=== PATIENT | male | born 1960 | race Caucasian/White ===

== ENCOUNTER 2018-02-06 05:30 | Inpatient (IN) | payer OTHER ==
[2018-02-06] MEDS: D5W-0.45 NACL + KCL 20 MEQ 1,000 ML IV ×3 (06:50→22:21)
[2018-02-06] MEDS ORDERED: CEPASTAT LOZENGE MT (07:00)
[2018-02-06] MEDS ORDERED: DIPHENHYDRAMINE 50 MG INJ IV ×2 (07:00→09:00)
[2018-02-06] MEDS ORDERED: DIPHENHYDRAMINE 25 MG CAP PO (07:00)
[2018-02-06] MEDS: CEFAZOLIN 1 GM/50 ML (PMX) 50 ML IVPB ×3 (07:00→22:20)
[2018-02-06] MEDS ORDERED: NALOXONE (0.4 MG/ML) INJ IV (07:00)
[2018-02-06] MEDS ORDERED: ACETAMINOPHEN 325 MG TAB PO (07:00)
[2018-02-06] MEDS ORDERED: AL HYDROX/MG HYDROX/SIMETH 30 ML CUP PO (07:00)
[2018-02-06] MEDS ORDERED: BISACODYL 10 MG SUPP PR (07:00)
[2018-02-06] MEDS ORDERED: HYDROmorphONE 0.5 MG/0.5 ML SYG IV (07:00)
[2018-02-06] MEDS ORDERED: HYDROCODONE/APAP (10/325) TAB PO (07:00)
[2018-02-06] MEDS ORDERED: ROCURONIUM 50 MG INJ (07:01)
[2018-02-06] MEDS ORDERED: GLYCOPYRROLATE 0.4 MG INJ (07:01)
[2018-02-06] MEDS ORDERED: PROPOFOL 20 ML (07:01)
[2018-02-06] MEDS ORDERED: CEFAZOLIN 1 GM INJ (07:01)
[2018-02-06] MEDS ORDERED: NEOSTIGMINE 3 MG/3 ML SYRINGE (07:01)
[2018-02-06] MEDS ORDERED: MIDAZOLAM 1 MG/ML 2 ML INJ (07:02)
[2018-02-06] MEDS ORDERED: ONDANSETRON 4 MG INJ (07:02)
[2018-02-06] MEDS ORDERED: DEXAMETHASONE 4 MG/ML 1 ML INJ (07:02)
[2018-02-06] MEDS ORDERED: GELATIN SIZE 100 SPONGE (07:06)
[2018-02-06] MEDS: BUPIVACAINE 0.5%/EPI (SDV) 30 ML INJ (07:51)
[2018-02-06] MEDS: POLYMYXIN/BACITRACIN 1L IRRIG (07:52)
[2018-02-06] MEDS: SURGIFOAM POWDER 1 GM KIT (08:37)
[2018-02-06] MEDS: THROMBIN 5000 UNIT VIAL (08:38)
[2018-02-06] MEDS ORDERED: TRIMETHOBENZAMIDE 100 MG/ML VIAL IM (09:00)
[2018-02-06] MEDS ORDERED: ALBUTEROL 0.083% (NEB) 2.5 MG/3 ML AMP HHN (09:00)
[2018-02-06] MEDS ORDERED: OXYCODONE/ACETAMINOPHEN (5/325) TAB PO ×2 (09:00)
[2018-02-06] MEDS ORDERED: hydrALAzine 20 MG INJ IV (09:00)
[2018-02-06] MEDS ORDERED: FENTAnyl 50 MCG/ML VIAL IV ×3 (09:00)
[2018-02-06] MEDS ORDERED: MIDAZOLAM 1 MG/ML 2 ML INJ IV (09:00)
[2018-02-06] MEDS ORDERED: IPRATROPIUM (NEB) 0.5 MG/2.5 ML AMP HHN (09:00)
[2018-02-06] MEDS ORDERED: MEPERIDINE 25 MG INJ IV (09:00)
[2018-02-06] MEDS ORDERED: ONDANSETRON 4 MG INJ IV (09:00)
[2018-02-06] MEDS ORDERED: EPHEDrine SULFATE 50 MG/5 ML SYG IV (09:00)
[2018-02-06] MEDS ORDERED: HYDROmorphONE 1 MG/5 ML IV SYRINGE IV ×2 (09:00)
[2018-02-06] MEDS ORDERED: LABETALOL HCL 20MG INJ IV (09:00)
[2018-02-06] MEDS: BUPIVACAINE 0.25% (MPF) 30 ML INJ (09:21)
[2018-02-06] MEDS ORDERED: SUGAMMADEX SODIUM 200 MG/2 ML VIAL IV (09:29)
[2018-02-06] MEDS: HYDROmorphONE 0.2 MG/ML PCA IV (10:03)
[2018-02-06] MEDS: HYDROmorphONE 1 MG/5 ML IV SYRINGE IV (10:13)
[2018-02-06] MEDS: DOCUSATE SODIUM 100 MG CAP PO ×2 (10:19→21:07)
[2018-02-06] MEDS: ONDANSETRON 4 MG INJ IV (18:06)
[2018-02-07] MEDS: D5W-0.45 NACL + KCL 20 MEQ 1,000 ML IV ×2 (02:50→12:50)
[2018-02-07] MEDS: PANTOPRAZOLE 40 MG INJ IV (05:12)
[2018-02-07 06:13] LABS: ADD MAN DIFF? NO
[2018-02-07 06:20] LABS: BASOPHILS % 0.1 % (0.0-2.0); EOSINOPHILS % 0.1 % (0.0-7.0); HEMATOCRIT 37.1 % (42.0-52.0); HEMOGLOBIN 12.3 g/dl (14.0-18.0); LYMPHOCYTES # 1.6 10^3/ul (0.8-2.9); LYMPHOCYTES % 10.3 % (15.0-51.0); MEAN CORPUSCULAR HEMOGLOBIN 28.5 pg (29.0-33.0); MEAN CORPUSCULAR HGB CONC 33.2 g/dl (32.0-37.0); MEAN CORPUSCULAR VOLUME 85.9 fl (82.0-101.0); MEAN PLATELET VOLUME 10.4 fl (7.4-10.4); MONOCYTE # 1.3 10^3/ul (0.3-0.9); MONOCYTES % 8.4 % (0.0-11.0); NEUTROPHIL # 12.4 10^3/ul (1.6-7.5); NEUTROPHILS % 80.6 % (39.0-77.0); PLATELET COUNT 270 10^3/UL (140-415); RED BLOOD COUNT 4.32 10^6/ul (4.70-6.10); RED CELL DISTRIBUTION WIDTH 14.3 % (11.5-14.5)
[2018-02-07 06:20] LABS: WHITE BLOOD COUNT 15.4 10^3/ul (4.8-10.8)
[2018-02-07 06:57] LABS: CALCIUM 9.3 mg/dl (8.4-10.2); CARBON DIOXIDE 24 mmol/L (21-31); CREATININE 0.96 mg/dl (0.61-1.24); GLUCOSE 130 mg/dl (70-220); POTASSIUM 4.1 mmol/L (3.5-5.1); SODIUM 140 mmol/L (135-144)
[2018-02-07 08:16] LABS: ANION GAP 12 (8-16); BLOOD UREA NITROGEN 15 mg/dl (7-20); CHLORIDE 108 mmol/L (97-110)
[2018-02-07] MEDS: DOCUSATE SODIUM 100 MG CAP PO (09:07)
[2018-02-07] MEDS: HYDROCODONE/APAP (10/325) TAB PO ×2 (09:53→13:54)
[2018-02-07] MEDS: CYCLOBENZAPRINE 10 MG TAB PO (11:30)
== END 2018-02-07 14:43 | disposition home or self-care (01) | DRG 473 ==
LOC: REC 05:30 → MS1 16:24
PROC: 0RG2071 Fusion of 2 or more Cervical Vertebral Joints with Autologous Tissue Substitute, Posterior Approach, Posterior Column, Open Approach (ICD-10-PCS; principal; 2018-02-06 07:00)
PROC: 4A11X4G Monitoring of Peripheral Nervous Electrical Activity, Intraoperative, External Approach (ICD-10-PCS; 2018-02-06 07:00)
DX: M96.0 Pseudarthrosis after fusion or arthrodesis (principal)
CPT/HCPCS: 72020; 72040; 80048; 83735; 85025; 97116; 97161; 97530